=== PATIENT | male | born 1960 | race Caucasian/White ===

== ENCOUNTER 2023-05-28 17:19 | Emergency (ER) | payer OTHER, SELFPAY ==
--- NOTE | ~2023-05-28 | XR_ITS ---
EXAMINATION: XR chest 2V Exam Date/Time: 05/28/2023 17:50 CDT HISTORY: SOB, HX OF ASTHMA Comparison: None. RESULT: Lines, tubes, and devices: None. Lungs and pleura: Clear. Cardiomediastinal silhouette: Unremarkable. Other: No acute osseous or upper abdominal finding. IMPRESSION: No acute cardiopulmonary process. Reviewed, dictated and finalized at location K.
[2023-05-28 17:22] VITALS: BP 144/81; PULSE 98; RESP 20; TEMP 36.8; O2SAT 98
--- NOTE | 2023-05-28 17:37 | ED.URI ---
HPI - URI/Sore Throat General Chief Complaint: Upper Respiratory Infection Stated Complaint: Shortness of Breath/Cough Source: patient Mode of arrival: ambulatory Limitations: no limitations History of Present Illness HPI Narrative: 62 y/o male with hx asthma, DM and HIV (reports undetectable) presented for c/o cough for almost 4 weeks. Endorses sob with exertion and feeling like he cannot take a full deep breath. Cough is productive of yellow sputum. Endorses fatigue and runny nose. At the onset of symptoms he had fever which has resolved. Taking delsym jaya seltzer and benadryl. Also using albuterol inhaler and Serevent, which he reports is empty. Patient resides in [place], and has been in this area for 4 weeks to care for his dying father. Also reports exposures to marijuana smoke and cat. Denies cp, palpitations, wheezing, n/v/d/f/c. Related Data Home Medications Medication Instructions Recorded Confirmed albuterol sulfate 90 mcg/actuation 2 puff inhalation Q4H PRN Wheezing 05/28/23 05/28/23 aerosol inhaler allopurinol 300 mg tablet 300 mg PO DAILY 05/28/23 05/28/23 atorvastatin 20 mg tablet 20 mg PO DAILY 05/28/23 05/28/23 bictegravir 50 mg-emtricitabine 1 tablet PO DAILY 05/28/23 05/28/23 200 mg-tenofovir alafenam 25 mg tablet (Biktarvy) lisinopril 5 mg tablet 5 mg PO DAILY 05/28/23 05/28/23 metformin 500 mg tablet,extended 500 mg PO QPM 05/28/23 05/28/23 release 24 hr venlafaxine 75 mg capsule,extended 75 mg PO DAILY 05/28/23 05/28/23 release 24 hr Allergies Allergy/AdvReac Type Severity Reaction Status Date / Time No Known Allergies Allergy Verified 05/28/23 17:44 Review of Systems Review of Systems: CONSTITUTIONAL: Denies body aches, fever, chills, or sweats. EYES: Denies visual changes, redness, or discharge. ENT: Reports rhinorrhea, Denies sore throat, or otalgia. CARDIOVASCULAR: Denies chest pain, palpitations, or edema. RESPIRATORY: Reports cough, sob, denies wheezing. GASTROINTESTINAL: Denies abdominal pain, nausea, vomiting, or diarrhea. SKIN: Denies rash, itching, or wounds. MUSCULOSKELETAL: Denies back pain, joint pain, or myalgia. NEUROLOGIC: Denies headache, numbness, tingling, or weakness. PSYCH: Denies depression or anxiety. All systems reviewed & are unremarkable except as noted in HPI and below PMFSH Past Medical History Medical History Asthma Diabetes HIV (human immunodeficiency virus infection) Comments At time of signature, I have reviewed and agree with nursing past medical, surgical, social and family history unless otherwise noted. Please see nursing chart for further information. There is no relevant family history pertinent to the presenting complaint Exam Narrative: GENERAL: Well-appearing, in no acute distress. EYES: EOMI. No redness or drainage. Conjunctivae normal. ENT: Mucous membranes pink and moist. No rhinorrhea. TMs normal, bilateral canals with mild drainage and erythema c/w OE. No tragal tenderness. Throat normal. Uvula midline. NECK: Normal AROM. Supple. CHEST: No respiratory distress. Lungs clear to all dominguez. 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 No murmur appreciated. ABDOMEN: Soft, nontender, nondistended, normal active bowel sounds. EXTREMITIES: Normal range of motion. No edema. SKIN: Warm, dry, no rash. Capillary refill normal. Normal skin turgor. NEURO: Alert and oriented x3. Gait steady. PSYCH: Normal affect. Course Course Emergency Course: Patient is aware of diagnosis, understands and agrees to treatment plan. Anticipatory guidance given. Patient agrees to follow-up as directed and is aware of reasons to seek care at the emergency department. Portions of this record may have been created with voice recognition software Level of Care: Express Care Visit MDM - URI/Sore Throat MDM Narrative Medical decision making narrative: results of c
== END 2023-05-28 18:15 | disposition home or self-care (01) ==
PROVIDERS: Emergency Provider Nurse Practitioner Family
DX: J40 Bronchitis, not specified as acute or chronic (principal); H60.93 Unspecified otitis externa, bilateral; E11.9 Type 2 diabetes mellitus without complications; J45.909 Unspecified asthma, uncomplicated; Z21 Asymptomatic human immunodeficiency virus [HIV] infection status
CPT/HCPCS: 71046; 99213; G0463